=== PATIENT | male | born 1990 | race Caucasian/White ===

== ENCOUNTER 2024-12-20 06:44 | Emergency (ER) | payer MEDICAID | END 2024-12-20 08:29 | disposition home or self-care (01) | LOC: JD.ED 06:44 | DX: E10.65 Type 1 diabetes mellitus with hyperglycemia (principal); Z79.4 Long term (current) use of insulin; Z79.899 Other long term (current) drug therapy; Z88.8 Allergy status to other drugs, medicaments and biological substances; Z88.0 Allergy status to penicillin | CPT/HCPCS: 82947; 99283; 99284 ==